=== PATIENT | female | born 1945 | race Caucasian/White ===

== ENCOUNTER → 2016-06-05 | Outpatient (CLI) | payer MEDICARE, BC ==
[~2016-06-05] MED LIST: ALBUAER3 INH; ASPI1TAB69 PO; ATOR20TA15 PO; CALCTAB80 PO; CITA20TA4 PO; FLUT1INH INH; LISI-519 PO; MULT1TAB84 PO; NITR0.4S SL; PANT40TA3 PO; VENTAER INH
[2016-06-05 11:47] LABS: AUTOMATED NEUTROPHIL # 5.5 TH/MM3 (1.8-7.7); BASOPHIL % 0.3 % (0.0-2.0); EOSINOPHIL # 0.1 TH/MM3 (0-0.4); EOSINOPHIL % 1.4 % (0.0-4.0); HEMATOCRIT 40.2 % (35.0-46.0); HEMO FLAGS DIFF FINAL; LYMPHOCYTE # 1.7 TH/MM3 (1.0-4.8); MEAN CELL VOLUME 85.8 FL (80.0-100.0); MEAN CORPUSCULAR HEMOGLOBIN 28.2 PG (27.0-34.0); MEAN CORPUSCULAR HGB CONC 32.8 % (32.0-36.0); MONO % 8.2 % (0.0-8.0); NEUT % 69.1 % (16.0-70.0); PLATELET COUNT 230 TH/MM3 (150-450); RED BLOOD COUNT 4.68 MIL/MM3 (4.00-5.30); RED CELL DISTRIBUTION WIDTH 13.5 % (11.6-17.2)
[2016-06-05 12:05] LABS: ALKALINE PHOSPHATASE 82 U/L (45-117); ALT (GPT) 17 U/L (10-53); ANION GAP 7 MEQ/L (5-15); AST (GOT) 8 U/L (15-37); BICARBONATE 29.9 MEQ/L (21.0-32.0); BLOOD UREA NITROGEN 16 MG/DL (7-18); CHLORIDE 105 MEQ/L (98-107); GLOMERULAR FILTRATION RATE 75 ML/MIN (>89); GLUCOSE,FASTING 86 MG/DL (74-99); POTASSIUM 4.2 MEQ/L (3.5-5.1); SODIUM (NA) 142 MEQ/L (136-145); TOTAL BILIRUBIN ADULT 0.4 MG/DL (0.2-1.0)
[2016-06-05 12:25] LABS: BACTERIA, URINE FEW /hpf; BLOOD, URINE TRACE (NEG); COMMENT (UR) CULT NOT INDICATED; CULTURE IF INDICATED CULT NOT INDICATED; GLUCOSE,URINE NEG (NEG); KETONE, URINE NEG (NEG); MUCUS URINE FEW /lpf (OCC); NITRITE,URINE NEG (NEG); PH, URINE 5.5 (5.0-8.5); RENAL EPITHELIAL CELLS <1 /hpf; SQUAMOUS EPITHELIAL CELL URINE 11 /hpf (0-5); TRANSITIONAL EPI CELLS, URINE 1 /hpf; URINE COLOR YELLOW (YELLW/STRAW)
--- NOTE | 2016-06-06 23:42 | EKG ---
Date Performed: 06/05/2016 Time Performed: 10:39:15 PTAGE: 71 years EKG: SINUS BRADYCARDIA POSSIBLE RIGHT VENTRICULAR CONDUCTION DELAY MINIMAL ST DEPRESSION BORDERL INE ECG NO PREVIOUS TRACING DOCTOR: Iliana Abernathy Interpretating Date/Time 06/06/2016 23:39:34
== END ==
LOC: CPRE 10:16
PROVIDERS: ATTEND Obstetrics & Gynecology Gynecology
DX: Z01.812 Encounter for preprocedural laboratory examination (principal); Z01.810 Encounter for preprocedural cardiovascular examination; N99.3 Prolapse of vaginal vault after hysterectomy; R00.1 Bradycardia, unspecified
CPT/HCPCS: 36415; 80053; 81001; 85025; 93005

== ENCOUNTER → 2016-06-11 | Day surgery (SDC) | payer MEDICARE, BC ==
--- NOTE | 2016-06-05 12:10 | MH ---
cc: COLTEN MILES MD,QING Clayton MD DATE OF ADMISSION: 06/11/2016 REASON FOR ADMISSION For vaginal repair. DATE OF 1945 HISTORY OF PRESENT ILLNESS The patient is a 71-year-old white female, 2, para 2, has had a prior abdominal hysterectomy and at least three vaginal repairs since 1999. She presents with complaint of pelvic pressure discomfort and "aching feeling" in the lower pelvis. This is a 6/10 complaint and she has considerable disruption of her quality of life because of the pelvic prolapse. PAST MEDICAL HISTORY 1. Hypertension. 2. Hypercholesterolemia. 3. Gastroesophageal reflux disease. 4. Cardiovascular disease. MEDICATIONS 1. Aspirin 81 mg daily. 2. Atorvastatin 20 mg daily. 3. Celexa 20 mg daily. 4. Lisinopril 5 mg daily. 5. Albuterol p.r.n. 6. Pantoprazole 40 mg daily. 7. Nitroglycerin p.r.n.; has not used it for at least 3 months. ALLERGIES ERYTHROMYCIN DIAMOX. FAMILY HISTORY Noncontributory. SOCIAL HISTORY . [employer] for ill . Drinks 1-2 glasses of one per day. Distant history of cigarettes, 30 pack-year history but has been nicotine-free for at least 10 years. PAST SURGICAL HISTORY 1. Cholecystectomy. 2. Total abdominal hysterectomy with BSO. 3. Cystocele repair x 3. CLINICAL SCIENTIST HISTORY No STDs or abnormal Pap smears. Hysterectomy for benign condition. OB HISTORY Two vaginal deliveries. REVIEW OF SYSTEMS As above. No chest pain, orthopnea, PND. No nausea, vomiting, fever or chills. No vaginal bleeding or discharge. Pelvic pain issues as noted above. No stress incontinence. PHYSICAL EXAMINATION VITAL SIGNS: Afebrile. Vital signs stable. Blood pressure is 150/75. Height is 5'5", weight is 190. BMI is 31.6. GENERAL: The patient is alert and oriented, in no acute distress. No sign of cognitive dysfunction or depression. HEENT: Within normal limits. NECK: Supple. No JVD. CHEST: Clear. HEART: Regular rate and rhythm. ABDOMEN: Soft, nontender. No hepatosplenomegaly. No area of tenderness. PELVIC: Exam in the office shows POP-Q score: Aa is 0, Ap is -1. Point C is -1. Genital hiatus is 4. Perineal body is 4. Total vaginal length is 10. Levator strength is 1/5. Sacral nerve reflexes are normal. Further exam under anesthesia. Post-void residual is 40 cc. EXTREMITIES: Normal skin, without rashes. NEUROLOGIC: Nonfocal. No DVT signs. ASSESSMENT Patient with Stage II pelvic organ prolapse all compartments. The patient and I have discussed at length the options for management and treatment. She was given the option of vaginal suspension versus LeFort procedure which would obliterate the vaginal canal. The patient is aware that with LeFort procedure she will have very little functional vagina. She has made an informed choice to proceed with the LeFort in light of the fact that it has a lower failure rate and she is most concerned about relief of his symptoms and obviating the need for any further surgery. The patient is aware of the risks, benefits and alternatives of the planned procedure including cessation of vaginal intercourse, bleeding, infection, pain, fistula formation, de michael incontinence and possibility that her pelvic pain may not be relieved by the surgery. We will use DVT prophylaxis with sequential compression device, Ancef 1 gram for antibiotic prophylaxis. Anticipate outpatient procedure. MD KHUSHI Zimmerman/BAYRON /10:12 AM /12:05 PM
[~2016-06-11] VITALS: Ht 165.1 cm; Wt 85.0 kg
[~2016-06-11] MED LIST changes: +ACETAMINOPHEN 1000 MG/100 ML VIAL IV ONE; +ESTROGENS CONJUGATED VAG CREA 15 APPL/30 GM TUBE ONE; +FLUORESCEIN SOD 10% SOLN 500 MG/5 ML AMP ONE; +FUROSEMIDE 40 MG/4 ML VIAL ONE; +INSULIN HUMAN REGULAR 1,000 UNITS/10 ML VIAL SQ PRN; +KETOROLAC TROMETHAMINE 60 MG/2 ML (IM) VIAL IM ONE; +LACTATED RINGER'S 1000 ML IV SCH; +LIDOCAINE 1%/EPINEPHrine 1:100,000 SOLN 30 ML VIAL ONE; +METHYLENE BLUE 100 MG/10 ML VIAL OTHER ONE; +METOPROLOL TARTRATE 25 MG TAB PO PRN; +ONDANSETRON HCL 4 MG/2 ML VIAL IV PUSH ONE; +PROPOFOL 200 MG/20 ML AMP IV ONE; +SODIUM CHLORID 0.9% 500 ML IV SCH; +SODIUM CHLORIDE 0.9% 20 ML VIAL ONE; -VENTAER INH; +ceFAZolin 1,000 MG/NS 100 ML IV SCH; +ePHEDrine/NS 25 MG/5 ML SYR IV ONE
[2016-06-11 09:00] VITALS: BP 177/85; PULSE 83; RESP 16; TEMP 97.7; O2SAT 98
[2016-06-11 14:16] VITALS: BP 129/59; PULSE 87; RESP 16; TEMP 98; O2SAT 96
--- NOTE | 2016-06-12 13:15 | MP ---
cc: COLTEN MILES MD DATE OF PROCEDURE 06/11/2016 PREOPERATIVE DIAGNOSIS Vaginal vault prolapse. POSTOPERATIVE DIAGNOSIS Vaginal vault prolapse with enterocele, cystocele, rectocele. PROCEDURE 1. Anterior and posterior repair with enterocele repair. 2. Vaginal vault suspension, coccygeus ligaments. 3. Perineoplasty. 4. Diagnostic cystoscopy. SURGEON MD Claude ANESTHESIA General endotracheal. BLOOD LOSS 50 cc. URINE OUTPUT 300 cc prior to the case. [employer] x 2 FLUIDS 1200 cc crystalloid. FINDINGS External genitalia poorly estrogenized. POP-Q score: Aa is 0, Ap is 0. Point C is 0. Total vaginal length is 10. Genital hiatus is 8. Perineal body is 4 with a skin bridge of approximately 2 cm noted at the fourchette. Following repair, Aa is -3, Ap is -3. Point C is -8. Total vaginal length is 8. Genital hiatus is 4. Perineal body is 6. Cystoscopy shows normal with good coaptation of urethra. Ureteral orifices patent x 2. Dome and base of bladder normal. Rectal exam is normal following repair. SPECIMENS Vaginal mucosa, anterior and posterior. COMPLICATIONS None. DISPOSITION To Recovery stable. COUNTS Needle, instrument and sponge counts correct. DRAINS Kaminski catheter. ANTIBIOTIC PROPHYLAXIS Ancef 1 gram. DVT PROPHYLAXIS Sequential compression device. TIME-OUT PROCEDURE Per protocol. SUMMARY OF INDICATIONS FOR PROCEDURE The patient with symptomatic uterine vaginal prolapse. The patient was amenable to either obliterative procedure or support procedure, depending upon what we ascertained best course would be following the exam under anesthesia. She was aware that if we did a obliterative procedure, she would forego the possibility of future vaginal intercourse. PROCEDURE The patient was taken to the operating theatre, identified, prepped and draped in a fashion appropriate for the planned procedure. She was in dorsal lithotomy position with careful attention paid to placement of legs in the stirrups to avoid undue stress to sensitive neurovascular structures. The above findings were noted, neurovascular integrity documented. A Kaminski catheter was placed, methylene blue was instilled into the bladder. In the exam under anesthesia we noted more anterior and posterior compartment defect than we had anticipated and actually somewhat less of an apical defect. A decision was made that obliterative procedure would actually be more technically challenging and an aggressive anterior-posterior repair and suspension with be more prudent. The patient's vaginal mucosa was infiltrated with epinephrine/ lidocaine solution, made a midline incision with scissors from the apex to approximately 1 cm distal to the urethra, mobilized the bladder to the ischial spines and to the pubic rami. There was no spill of methylene blue. Anterior repair performed without complication using delayed absorbable suture. Significant amount of vaginal cuff was trimmed on each side. The vaginal mucosa was closed with a running Vicryl suture and we used hemostatic matrix for hemostasis to obviate the need for packing. The cystoscopy was performed using a 17-[place] bridge and a 70-degrees scope. The patient received IV fluorescein 1 cc. We were able to demonstrate good coaptation of urethra. The ureteral orifices were patent x 2. Dome and base of bladder normal. The Kaminski catheter was replaced. Decision was made to proceed with the posterior and apical repairs. Epinephrine/lidocaine solution was infiltrated at the site of the skin bridge which was approximately 2 cm at the fourchette. This was incised and then a wedge of tissue was removed down to the perineal body and into the vagina. The vaginal mucosa was reflected from the rectovaginal tissues. We are able to develop spaces on each side, the perirectal space. We took the incision in the mucosa up to the apex but did not include the previous incision from the anterior repair. Rectal exam confirmed no damage to the rectum. We plicated the rectovaginal fascia and then attached the apex to coccygeus muscle without complication. Vaginal mucosa was trimmed and mucosa was closed with a running Vicryl suture. Hemostatic matrix was used for hemostasis to obviate the need for packing. Aggressive perineoplasty was performed in standard fashion. This had the effect of enhancing the perineal body to 6 cm and closed the vaginal hiatus from 8 cm to 4 cm. The suture line that was inspected, found to be intact, no undue bleeding. Rectal exam was repeated and was normal. The patient was reversed from anesthesia and taken to the recovery room in stable condition. MD KHUSHI Zimmerman/BAYRON /12:25 PM /12:47 PM
== END | disposition home or self-care (01) ==
LOC: HSDC 08:08
PROVIDERS: ATTEND Obstetrics & Gynecology Gynecology
DX: N81.10 Cystocele, unspecified (principal); N81.6 Rectocele; N81.5 Vaginal enterocele; I10 Essential (primary) hypertension; I25.10 Atherosclerotic heart disease of native coronary artery without angina pectoris; E78.00 Pure hypercholesterolemia, unspecified; K21.9 Gastro-esophageal reflux disease without esophagitis; Z79.82 Long term (current) use of aspirin
CPT/HCPCS: 00942; 57260; 88302; J0131; J0690; J1885; J1940; J2405; J3010; J7120